=== PATIENT | male | born 1935 | race Caucasian/White ===

== ENCOUNTER 2024-12-27 11:31 | Emergency (ER) | payer OTHER, SELFPAY ==
[2024-12-27 12:35] VITALS: BP 128/88; PULSE 95; RESP 18; TEMP 37.4; O2SAT 96; BMI 28.4
--- NOTE | 2024-12-27 12:52 | EDNOTE_ITS ---
ED General RME/HPI General Chief complaint: Wound/Laceration Stated complaint: LAC TOP OF R) HAND Time Seen by Provider: 12/27/24 12:12 Arrival date/time: : Right hand laceration HPI patient struck the back of his hand against a rough cut wood causing immediate laceration and bleeding. Unknown last tetanus. Patient denies any blood thinners. Localized pain is 1-2 on a 10 scale. Related Data Allergies Allergy/AdvReac Type Severity Reaction Status Date / Time codeine Allergy Intermediate Dizziness Verified 12/27/24 11:34 Review of Systems Review of Systems Narrative Review of Systems: GEN: No fever, no chills, no weight loss EYES: No discharge, no visual changes, no pain HEENT: No ear pain, no congestion, no sore throat PULM: No shortness of breath, no cough, no congestion CV: No chest pain, no dyspnea on exertion, no palpitations GI: No nausea, no vomiting, no diarrhea, no pain, no constipation : No frequency, no urgency, no dysuria MUSC/SKEL: No joint pain, no back pain SKIN: Positive laceration, no rash PSYCH: No hallucinations, no depression HEME/LYMPH: No easy bleeding or bruising tendencies NEURO: No weakness, no headache Past Medical History Social History SMOKING STATUS: Never smoker ED Exam Narrative Physical exam: [General: Not in any acute distress Head normocephalic HEENT: Within acceptable limits Neck is supple nontender Chest equal chest rise nontender to palpation Respiratory: Clear to auscultation no wheezes crackles or rubs CV: Rate rhythm is regular no murmurs rubs or clicks Abdomen is distended secondary to body habitus soft nontender no masses positive bowel sounds all 4 quadrants Back: No CVA tenderness no spinous process tenderness from cervical spine thoracic and lumbar spine Skin: 3 cm semilunar full-thickness flap laceration to the dorsum of the right hand. Otherwise skin is intact no petechiae rash induration ulceration or crepitus Extremities: Moving all extremity against resistance cap refill less than 2 seconds neurosensory intact Neuro: Awake alert oriented x3 Glascow coma 15 no focal deficits] Course Quality Measures none Orders Category Date Time Status TET,DIP/PERT AC (Adult)-Tdap [Boostrix Adult (Tdap) Med 12/27/24 12:54 Discontinued Vacc] 0.5 ml IMI .ONCE ONE Vital Signs Vital signs: Vital Signs Temperature 99.3 F 12/27/24 12:35 Pulse Rate 95 12/27/24 12:35 Respiratory Rate 18 12/27/24 12:35 Blood Pressure 128/88 H 12/27/24 12:35 Pulse Oximetry (%) 96 12/27/24 12:35 Oxygen Delivery Method Aerosol Mask 12/27/24 12:35 PROCEDURES: Procedure Comment Laceration repair consent obtained, anesthesia: 1% lidocaine without epinephrine 2 mL injected in the local site, site was cleaned and probed no foreign body was found site was approximated with 3 interrupted sutures of 3-0 Ethilon with good approximation without complication patient tolerated the procedure well dressing applied. Discharge Plan Plan Patient Disposition: HOME (Self Care) Patient condition on transfer: Stable Problem List Clinical Impression: Hand laceration Patient/Caregiver Discharge Instructions Education Materials: ED Laceration, Hand: All Closures Print Language: Grenadian Stand Alone Forms: Rachel Award Info., Patient Portal Info Letter PA/MATTHEW Supervising Physician PA/MATTHEW Supervising Physician: Jhonathan Palomares ENP MDM Clinical Information Provided by: patient Medical Records reviewed [facility] Meds/Rx considered, not ordered None Labs/Rad/Tests considered, not ordered None Chronic Illness/Social Conditions which may negatively complicate care or outcome(s)-explain: None or not applicable EKG EKG not done Labs Labs: none Imaging Imaging interpretation: none Medication Administration(s) Medication Administration History Discontinued Medications Diphtheria/Tetanus/Acell Pertussis (Diphth,Pertuss(Acell),Tet Vac 0.5 Ml Syr- Adult) 0.5 ml IMi .ONCE ONE Stop: 12/27/24 12:55 Last Admin: 12/27/24 13:31 Dose: Not Given Documented By: GM Non-Admin Reason: Patient Refused Diagnosis Differential Diagnosis ED Complaint MDM: Laceration abrasion avulsion
== END 2024-12-27 13:29 | disposition home or self-care (01) ==
LOC: SERX 13:46
PROVIDERS: Emergency Provider Family Medicine; PCP Internal Medicine
DX: S61.411A Laceration without foreign body of right hand, initial encounter (principal); W22.8XXA Striking against or struck by other objects, initial encounter
CPT/HCPCS: 12001; 99281